=== PATIENT | female | born 1960 | race Caucasian/White ===

== ENCOUNTER → 2016-09-16 | Outpatient (CLI) | payer OTHER ==
[~2016-09-16] MED LIST: AMBI10TA PO; BIOT7500 PO; BUSP15TA PO; BUSP1TAB PO; CALC1TAB87 PO; CALC600T12 PO; CHOL1TAB42 PO; CIPR-9 PO; CYCL1TAB29 PO; DIFL150T PO; EFFE150C PO; ESTR.625 PO; HALC0.25 PO; HYDR12.57 PO; LIDO1%30P INFIL; LIFI1DRO EACH EYE; LORA-475 PO; MV-OCAP; NYST15T TOPICAL; NYSTCRE29 TOPICAL; OMEG1CAP50 PO; PRIL20CA9 PO; PRIL20TA2 PO; ULTR50TA5 PO; VENL100T PO; VITA1000 PO; VITA10002 PO; ZANT150T2 PO; [UNRECOGNIZED DRUG - CODE] VAGINAL
[2016-09-16 13:32] LABS: AUTOMATED NEUTROPHIL # 3.5 TH/MM3 (1.8-7.7); BASOPHIL # 0.1 TH/MM3 (0-0.2); BASOPHIL % 0.9 % (0.0-2.0); EOSINOPHIL # 0.3 TH/MM3 (0-0.4); EOSINOPHIL % 4.7 % (0.0-4.0); HEMATOCRIT 40.4 % (35.0-46.0); HEMO FLAGS DIFF FINAL; LYMPH % 33.2 % (9.0-44.0); MEAN CELL VOLUME 90.2 FL (80.0-100.0); MEAN CORPUSCULAR HEMOGLOBIN 30.4 PG (27.0-34.0); MEAN CORPUSCULAR HGB CONC 33.7 % (32.0-36.0); MONO % 4.1 % (0.0-8.0); NEUT % 57.1 % (16.0-70.0); PLATELET COUNT 285 TH/MM3 (150-450); RED BLOOD COUNT 4.48 MIL/MM3 (4.00-5.30); RED CELL DISTRIBUTION WIDTH 12.4 % (11.6-17.2); WHITE BLOOD COUNT 6.2 TH/MM3 (4.0-11.0)
[2016-09-16 15:30] LABS: BACTERIA, URINE OCC /hpf; BLOOD, URINE NEG (NEG); COMMENT (UR) CULT NOT INDICATED; CULTURE IF INDICATED CULT NOT INDICATED; GLUCOSE,URINE NEG (NEG); KETONE, URINE NEG (NEG); MUCUS URINE FEW /lpf (OCC); NITRITE,URINE NEG (NEG); PH, URINE 5.5 (5.0-8.5); SQUAMOUS EPITHELIAL CELL URINE 8 /hpf (0-5); URINE COLOR DARK-YELLOW (YELLW/STRAW)
[2016-09-16 15:47] LABS: ALT (GPT) 28 U/L (10-53); ANION GAP 9 MEQ/L (5-15); AST (GOT) 20 U/L (15-37); BICARBONATE 24.1 MEQ/L (21.0-32.0); BLOOD UREA NITROGEN 11 MG/DL (7-18); CHLORIDE 108 MEQ/L (98-107); GLOMERULAR FILTRATION RATE 78 ML/MIN (>89); GLUCOSE,FASTING 85 MG/DL (74-99); MAGNESIUM 2.1 MG/DL (1.5-2.5); SODIUM (NA) 141 MEQ/L (136-145)
[2016-09-16 16:12] LABS: ALKALINE PHOSPHATASE 64 U/L (45-117); HDL CHOLESTEROL 86.5 MG/DL (40.0-60.0); LDL CHOLESTEROL 43 MG/DL (0-99); TOTAL BILIRUBIN ADULT 0.4 MG/DL (0.2-1.0); TRANSFERRIN IRON PROFILE 330 MG/DL (200-360)
== END ==
LOC: OLAB 11:38
PROVIDERS: ATTEND Nurse Practitioner Family
DX: G24.5 Blepharospasm (principal); R03.0 Elevated blood-pressure reading, without diagnosis of hypertension; L29.0 Pruritus ani; Z98.84 Bariatric surgery status; Z68.41 Body mass index [BMI] 40.0-44.9, adult
CPT/HCPCS: 80053; 80061; 81001; 82306; 82607; 82746; 83540; 83550; 83735; 85025; 86803

== ENCOUNTER → 2016-11-15 | Outpatient (CLI) | payer OTHER ==
[~2016-11-15] MED LIST changes: -CALC600T12 PO; -CHOL1TAB42 PO; -NYST15T TOPICAL
[2016-11-15 12:11] LABS: ANION GAP 10 MEQ/L (5-15); AST (GOT) 16 U/L (15-37); BICARBONATE 25.7 MEQ/L (21.0-32.0); BLOOD UREA NITROGEN 12 MG/DL (7-18); CHLORIDE 107 MEQ/L (98-107); GLOMERULAR FILTRATION RATE 71 ML/MIN (>89); POTASSIUM 3.9 MEQ/L (3.5-5.1); SODIUM (NA) 143 MEQ/L (136-145)
[2016-11-15 12:38] LABS: ALKALINE PHOSPHATASE 66 U/L (45-117); ALT (GPT) 30 U/L (10-53); TOTAL BILIRUBIN ADULT 0.3 MG/DL (0.2-1.0)
== END ==
LOC: OLAB 09:49
PROVIDERS: ATTEND Nurse Practitioner Family
DX: I10 Essential (primary) hypertension (principal); E55.9 Vitamin D deficiency, unspecified
CPT/HCPCS: 36415; 80053; 82306; 82607

== ENCOUNTER → 2016-11-26 | Outpatient (CLI) | payer OTHER ==
[~2016-11-26] VITALS: Ht 162.6 cm; Wt 114.1 kg
[~2016-11-26] MED LIST changes: -DIFL150T PO; +INSULIN HUMAN REGULAR 1,000 UNITS/10 ML VIAL SQ PRN; +LACTATED RINGER'S 1000 ML IV SCH; +METOPROLOL TARTRATE 25 MG TAB PO PRN; +PROPOFOL 200 MG/20 ML AMP IV ONE; +SODIUM CHLORID 0.9% 500 ML IV SCH; -[UNRECOGNIZED DRUG - CODE] VAGINAL
[2016-11-26 08:34] VITALS: BP 118/68; PULSE 64; RESP 16; TEMP 98.7; O2SAT 98
[2016-11-26 11:00] VITALS: BP 106/74; PULSE 73; RESP 16; O2SAT 97
--- NOTE | 2016-11-26 14:57 | EKG ---
Date Performed: 11/26/2016 Time Performed: 09:52:55 PTAGE: 56 years EKG: Sinus rhythm LOW QRS VOLTAGE IN PRECORDIAL LEADS BORDERLINE ECG NO PREVIOUS TRACING DOCTOR: Ness Vincent Interpretating Date/Time 11/26/2016 14:52:58
--- NOTE | 2016-11-28 12:09 | MR ---
cc: ANDERSON GOMES DATE: 11/26/2016 DATE OF : 1960. PROCEDURE: Colonoscopy INDICATIONS FOR PROCEDURE Evaluation for fecal urgency, average risk colorectal cancer screening. Photographs were taken. Biopsies taken. PREMEDICATION Administered by anesthesiology. Monitoring was accomplished with pulse oximeter, EKG, blood pressure monitor. PROCEDURE NOTE After informed consent was obtained and the procedure, risks, and benefits were explained including the risk of bleeding, sepsis, perforation, risks of anesthesia, the patient was placed in the left lateral position. The video colonoscope was inserted into the rectum. The scope was advanced in the usual fashion through the cecal position. Abdominal pressure was used to aid passage of the scope. The colonic mucosa grossly appeared to be normal throughout. The terminal ileum was briefly visualized, also was unremarkable. In the cecum one small 4 to 5 mm polyp was found. This was biopsied off and removed easily. There was some residual soft greenish fecal matter noted, especially in the right colon. This was lavaged and suctioned as best possible. The ascending colon, transverse colon were unremarkable. The descending colon appeared to be normal. At the rectosigmoid junction one diminutive polyp was again found, this was biopsied off and removed as well. In the rectum the scope was retroflexed, grade 1 internal hemorrhoids were noted. No active bleeding was seen. The scope was removed. The patient tolerated the procedure well. No immediate complications noted. IMPRESSION This examination was essentially benign. Two diminutive polyps were found as outlined above in the cecum and rectosigmoid. Will follow up the histopathology of the lesions. Based on this will determine whether follow-up colonoscopy will be needed in five or ten years. Would recommend conservative therapy for the hemorrhoids. Will discuss the case with the patient as well. MD JAMESON Mcfarland/RADHA /10:51 AM /11:06 AM
== END ==
LOC: HEND 07:24
PROVIDERS: ATTEND Internal Medicine Gastroenterology
DX: D12.0 Benign neoplasm of cecum (principal); K64.0 First degree hemorrhoids; R15.2 Fecal urgency; Z01.810 Encounter for preprocedural cardiovascular examination
CPT/HCPCS: 00810; 45380; 88305; 93005; J7120

== ENCOUNTER → 2017-03-02 | Day surgery (SDC) | payer OTHER ==
[~2017-03-02] VITALS: Ht 162.6 cm; Wt 113.3 kg
[~2017-03-02] MED LIST changes: -BIOT7500 PO; +BUPIVACAINE HCL PF 0.25% 30 ML VIAL INFIL ONE; -BUSP15TA PO; -BUSP1TAB PO; +CHLORHEXIDINE GLUCONATE 2 % 1 PACK (2 CLOTHS) TOPICAL PRN; -CIPR-9 PO; +DEXAMETHASONE SOD PHOS 4 MG/ML VIAL ONE; -ESTR.625 PO; +FAMOTIDINE 20 MG/2 ML VIAL ONE; -HALC0.25 PO; +KETAMINE HCL 500 MG/5 ML VIAL ONE; +LACTATED RINGER'S 1000 ML IV PRN; -LACTATED RINGER'S 1000 ML IV SCH; -LIDO1%30P INFIL; +LIDOCAINE HCL 0.5% PF 50 ML VIAL ONE; -LORA-475 PO; +METOCLOPRAMIDE HCL 10 MG/2 ML VIAL ONE; +MIDAZOLAM HCL 2 MG/2 ML VIAL ONE; -MV-OCAP; -NYSTCRE29 TOPICAL; +POVIDONE IODINE 5% (ANTISEPSIS KIT) 4 APPLICATIONS EACH NARE PRN; -PRIL20CA9 PO; +SODIUM CHLORID 0.9% 500 ML IV PRN; -SODIUM CHLORID 0.9% 500 ML IV SCH; -VENL100T PO
[2017-03-02 11:13] VITALS: BP 142/78; PULSE 68; RESP 18; TEMP 98.4; O2SAT 96
[2017-03-02 11:44] LABS: AUTOMATED NEUTROPHIL # 2.3 TH/MM3 (1.8-7.7); BASOPHIL # 0.1 TH/MM3 (0-0.2); BASOPHIL % 1.2 % (0.0-2.0); EOSINOPHIL # 0.3 TH/MM3 (0-0.4); EOSINOPHIL % 5.1 % (0.0-4.0); HEMATOCRIT 40.3 % (35.0-46.0); HEMO FLAGS DIFF FINAL; LYMPH % 42.7 % (9.0-44.0); LYMPHOCYTE # 2.2 TH/MM3 (1.0-4.8); MEAN CELL VOLUME 90.1 FL (80.0-100.0); MEAN CORPUSCULAR HGB CONC 33.2 % (32.0-36.0); MONO % 6.2 % (0.0-8.0); NEUT % 44.8 % (16.0-70.0); PLATELET COUNT 289 TH/MM3 (150-450); RED BLOOD COUNT 4.48 MIL/MM3 (4.00-5.30); RED CELL DISTRIBUTION WIDTH 13.3 % (11.6-17.2); WHITE BLOOD COUNT 5.1 TH/MM3 (4.0-11.0)
[2017-03-02 14:15] VITALS: BP 142/85; PULSE 67; RESP 18; TEMP 98.1; O2SAT 98
--- NOTE | 2017-03-03 09:12 | MP ---
cc: ANDERSON GOMES DAVID L. 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 PROCEDURE Three quadrant hemorrhoidectomy. SURGEON Oseas Arizmendi MD ANESTHESIA MAC, local with 50 cc of 0.25% Marcaine with epinephrine. INDICATION This is a 56-year-old who has had large hemorrhoids with recurring episodes of thrombosis. She has been troubled for several years. She was seen in the office and found to have large hemorrhoids with associated thrombosis and the patient presents for hemorrhoid surgery. PROCEDURE The perianal region was prepped and draped in the left lateral position by the operating surgeon. Examination under anesthesia was done after adequate intravenous anesthesia. Local anesthetic was infiltrated and an excellent block was obtained. The anal canal was examined. There were large internal and external hemorrhoids in three quadrants. There was no active thrombosis at this time. With the Fansler retractor in place, the internal and external hemorrhoids were resected from the anal sphincter in the right posterior, right anterior and left lateral positions. The hemorrhoid pedicle was clamped and suture ligated with chromic in the right posterior position. The hemorrhoid wounds were closed with running chromic suture. The patient tolerated the procedure well. Sponge counts were correct. Blood loss was minimal. MD DALTON Giron/LOUIS /1:40 PM /8:56 AM
== END | disposition home or self-care (01) ==
LOC: HSDC 10:33
PROVIDERS: ATTEND Colon & Rectal Surgery
DX: K64.5 Perianal venous thrombosis (principal); K64.8 Other hemorrhoids
CPT/HCPCS: 00902; 46260; 85025; 88304; J1100; J2250; J2765; J7120

== ENCOUNTER → 2017-06-09 | Outpatient (CLI) | payer OTHER ==
[~2017-06-09] MED LIST changes: -BUPIVACAINE HCL PF 0.25% 30 ML VIAL INFIL ONE; +CEPH-460 PO; -CHLORHEXIDINE GLUCONATE 2 % 1 PACK (2 CLOTHS) TOPICAL PRN; +CIPR-9 PO; -DEXAMETHASONE SOD PHOS 4 MG/ML VIAL ONE; -FAMOTIDINE 20 MG/2 ML VIAL ONE; -INSULIN HUMAN REGULAR 1,000 UNITS/10 ML VIAL SQ PRN; -KETAMINE HCL 500 MG/5 ML VIAL ONE; -LACTATED RINGER'S 1000 ML IV PRN; -LIDOCAINE HCL 0.5% PF 50 ML VIAL ONE; +MENAINJ2 IM; -METOCLOPRAMIDE HCL 10 MG/2 ML VIAL ONE; -METOPROLOL TARTRATE 25 MG TAB PO PRN; -MIDAZOLAM HCL 2 MG/2 ML VIAL ONE; -POVIDONE IODINE 5% (ANTISEPSIS KIT) 4 APPLICATIONS EACH NARE PRN; -PROPOFOL 200 MG/20 ML AMP IV ONE; -SODIUM CHLORID 0.9% 500 ML IV PRN; +ZOFR4TAB PO
[2017-06-09 10:20] LABS: AUTOMATED NEUTROPHIL # 2.4 TH/MM3 (1.8-7.7); BASOPHIL % 0.6 % (0.0-2.0); EOSINOPHIL # 0.3 TH/MM3 (0-0.4); HEMATOCRIT 40.4 % (35.0-46.0); HEMO FLAGS DIFF FINAL; LYMPH % 46.3 % (9.0-44.0); LYMPHOCYTE # 2.7 TH/MM3 (1.0-4.8); MEAN CELL VOLUME 88.7 FL (80.0-100.0); MEAN CORPUSCULAR HEMOGLOBIN 28.6 PG (27.0-34.0); MEAN CORPUSCULAR HGB CONC 32.3 % (32.0-36.0); MONO % 5.6 % (0.0-8.0); NEUT % 42.5 % (16.0-70.0); PLATELET COUNT 336 TH/MM3 (150-450); RED BLOOD COUNT 4.56 MIL/MM3 (4.00-5.30); RED CELL DISTRIBUTION WIDTH 13.1 % (11.6-17.2); WHITE BLOOD COUNT 5.7 TH/MM3 (4.0-11.0)
[2017-06-09 12:46] LABS: BACTERIA, URINE FEW /hpf; BLOOD, URINE NEG (NEG); COMMENT (UR) CULT NOT INDICATED; CULTURE IF INDICATED CULT NOT INDICATED; GLUCOSE,URINE NEG (NEG); KETONE, URINE NEG (NEG); NITRITE,URINE NEG (NEG); PH, URINE 5.5 (5.0-8.5); URINE COLOR YELLOW (YELLW/STRAW)
[2017-06-09 13:10] LABS: ANION GAP 8 MEQ/L (5-15); AST (GOT) 18 U/L (15-37); BICARBONATE 24.9 MEQ/L (21.0-32.0); BLOOD UREA NITROGEN 15 MG/DL (7-18); CHLORIDE 108 MEQ/L (98-107); GLOMERULAR FILTRATION RATE 76 ML/MIN (>89); GLUCOSE,FASTING 97 MG/DL (74-99); MAGNESIUM 1.9 MG/DL (1.5-2.5); SODIUM (NA) 141 MEQ/L (136-145)
[2017-06-09 13:38] LABS: ALKALINE PHOSPHATASE 79 U/L (45-117); ALT (GPT) 24 U/L (10-53); TOTAL BILIRUBIN ADULT 0.4 MG/DL (0.2-1.0)
== END ==
LOC: OLAB 09:53
PROVIDERS: ATTEND Nurse Practitioner Family
DX: F41.9 Anxiety disorder, unspecified (principal); I10 Essential (primary) hypertension; E53.9 Vitamin B deficiency, unspecified; E55.9 Vitamin D deficiency, unspecified
CPT/HCPCS: 80053; 81001; 82306; 82607; 83735; 85025